=== PATIENT | female | born 1945 ===

== ENCOUNTER 2016-07-04 10:20 | Outpatient (RCR) | payer MEDICARE, MEDICAID | END 2016-07-22 | disposition home or self-care (01) | LOC: WCC 10:20 | DX: L97.523 Non-pressure chronic ulcer of other part of left foot with necrosis of muscle (principal); E08.621 Diabetes mellitus due to underlying condition with foot ulcer; Z79.82 Long term (current) use of aspirin; Z79.4 Long term (current) use of insulin; I12.0 Hypertensive chronic kidney disease with stage 5 chronic kidney disease or end stage renal disease; E11.22 Type 2 diabetes mellitus with diabetic chronic kidney disease; N18.6 End stage renal disease; Z99.2 Dependence on renal dialysis; I73.9 Peripheral vascular disease, unspecified | CPT/HCPCS: G0463 ==

== ENCOUNTER → 2016-07-04 | Outpatient (CLI) | payer MEDICARE, MEDICAID ==
--- NOTE | 2016-07-04 15:04 | Diagnostic Imaging Report ---
Indication: COUGH Technique: 2 views of the chest Comparison: none Findings: There is a right chest pacemaker. There is a left axillary venous stents. Lungs and pleural spaces are clear. The heart is enlarged. Impression: No acute process. Mild cardiomegaly Other findings as noted
== END | disposition home or self-care (01) ==
LOC: RAD 11:25
DX: R05 Cough (principal); I51.7 Cardiomegaly
CPT/HCPCS: 71020